=== PATIENT | male | born 1960 | race African-American/Black ===

== ENCOUNTER 2021-03-26 21:48 | Emergency (ER) | payer MEDICARE, MEDICAID ==
[~2021-03-26] VITALS: Ht 175.3 cm; Wt 68.0 kg
[2021-03-26] MEDS ORDERED: SODIUM CHLORIDE 0.9% 1,000 ML IV ONE (22:30)
[2021-03-26 23:14] LABS: CHLORIDE 100 mEq/L (98-107)
[2021-03-26 23:15] LABS: BASOPHILS % 0.5 % (0.0-2.0); EOSINOPHILS % 0.3 % (0.0-5.0); HEMOGLOBIN. 13.7 g/dL (14.0-18.0); LYMPHOCYTES % 18.6 % (20.0-50.0); MEAN CORPUSCULAR HEMOGLOBIN 27.3 pg (28.0-32.0); MEAN CORPUSCULAR VOLUME 85.7 fL (80.0-94.0); MONOCYTES % 9.8 % (2.0-8.0); NEUTROPHILS % 70.8 % (40.0-76.0); PLATELET 149 x1000/uL (130-400); RED BLOOD CELL COUNT 5.02 mill/uL (4.7-6.1); RED CELL DISTRIBUTION WIDTH 14.1 % (11.6-14.6)
[2021-03-26 23:19] LABS: ETHANOL BLOOD < 10 mg/dL
[2021-03-26 23:22] LABS: CLARITY URINE CLEAR (CLEAR); COLOR URINE YELLOW (YELLOW); KETONES URINE TRACE (NEGATIVE); LEUKOCYTE ESTERASE URINE NEGATIVE (NEGATIVE); NITRITE URINE NEGATIVE (NEGATIVE); OCCULT BLOOD URINE TRACE (NEGATIVE); PH URINE 5.5 (4.5-8.0); PROTEIN URINE 1+ (NEGATIVE); SPECIFIC GRAVITY URINE 1.025 (1.005-1.030); UROBILINOGEN URINE 0.2 E.U./dL (0.2-1.0)
[2021-03-26 23:31] LABS: *AMPHETAMINES SCREEN URINE NEGATIVE (NEGATIVE)
[2021-03-26 23:32] LABS: *BARBITURATES SCREEN URINE NEGATIVE (NEGATIVE); *BENZODIAZEPINES SCREEN URINE NEGATIVE (NEGATIVE); *COCAINE SCREEN URINE PRESUMTIVE POSITIVE (NEGATIVE); METHADONE URINE SCREEN NEGATIVE (NEGATIVE); OPIATES URINE SCREEN NEGATIVE (NEGATIVE); PHENCYCLIDINE URINE SCREEN NEGATIVE (NEGATIVE)
[2021-03-26 23:34] LABS: CANNABINOID URINE SCREEN PRESUMTIVE POSITIVE (NEGATIVE)
[2021-03-27 06:11] VITALS: BP 118/77
== END 2021-03-27 06:13 | disposition home or self-care (01) ==
LOC: ER 21:48
DX: F19.10 Other psychoactive substance abuse, uncomplicated (principal); F17.290 Nicotine dependence, other tobacco product, uncomplicated; F20.9 Schizophrenia, unspecified
CPT/HCPCS: 36415; 70450; 80053; 80165; 80305; 80320; 81003; 85025; 93005; 96360; 99285; J7030; G0480

== ENCOUNTER 2021-09-02 17:03 | Emergency (ER) | payer MEDICARE, MEDICAID ==
[~2021-09-02] VITALS: Ht 170.2 cm; Wt 71.0 kg
[2021-09-02 17:12] VITALS: BP 150/81
[2021-09-02] MEDS ORDERED: MAGNESIUM/ALUMINUM HYDROXIDE/SIMETHICONE 30ML UDC PO ONE (18:45)
[2021-09-02] MEDS ORDERED: FAMOTIDINE 20MG TABLET PO ONE (18:45)
[2021-09-02 20:03] LABS: BASOPHILS % 0.5 % (0.0-2.0); HEMATOCRIT. 43.1 % (42.0-52.0); LYMPHOCYTES % 29.9 % (20.0-50.0); MEAN CORPUSCULAR HEMOGLOBIN 27.4 pg (28.0-32.0); MEAN CORPUSCULAR VOLUME 84.2 fL (80.0-94.0); MEAN PLATELET VOLUME 8.4 fl (7.4-10.4); MONOCYTES % 10.2 % (2.0-8.0); NEUTROPHILS % 58.4 % (40.0-76.0); PLATELET 191 x1000/uL (130-400); RED BLOOD CELL COUNT 5.12 mill/uL (4.7-6.1); RED CELL DISTRIBUTION WIDTH 14.2 % (11.6-14.6)
[2021-09-02 20:17] LABS: CHLORIDE 100 mEq/L (98-107); ETHANOL BLOOD < 10 mg/dL
[2021-09-02] MEDS ORDERED: FAMO40TA70 MT (20:28)
[2021-09-02] MEDS ORDERED: POLY17PO3 MT (20:28)
== END 2021-09-02 21:16 | disposition home or self-care (01) ==
LOC: ER 17:03
DX: R10.9 Unspecified abdominal pain (principal); F17.290 Nicotine dependence, other tobacco product, uncomplicated
CPT/HCPCS: 36415; 80053; 80320; 85025; 99283; G0480

== ENCOUNTER 2023-06-03 13:40 | Inpatient (IN) | payer MEDICARE, MEDICAID ==
[~2023-06-03] VITALS: Ht 167.6 cm; Wt 41.5 kg
[~2023-06-03 13:40] MED LIST: DIVA-75 MT; FAMO40TA70 MT; MED4 MT; OLAN20TA34 PO; POLY17PO3 MT
[2023-06-03] MEDS: IPRATROPIUM BROMIDE (0.02%) 0.5MG/2.5ML NEB HHN STA (14:00)
[2023-06-03] MEDS: MAGNESIUM 2 G PREMIX 50 ML IV ONE (14:22)
[2023-06-03] MEDS: METHYLPREDNISOLONE SOD SUCC 125MG/2ML (ACT-O-VIAL) IV STA (14:22)
[2023-06-03 14:25] VITALS: RESP 24
[2023-06-03 14:25] LABS: BG BASE EXCESS 19.1 mmol/L (-2.0-2.0); BG CARBOXYHEMOGLOBIN 1.1 % (0.5-1.5); BG DEOXYHEMOGLOBIN 0.9 % (0.0-5.0); BG FRACTION INSPIRED OXYGEN 60; BG HCO3 ACT 54.2 mmol/L (22.0-26.0); BG METHEMOGLOBIN 0.7 % (0.0-1.5); BG OXYGEN SATURATION 99.1 % (92.0-98.5); BG OXYHEMOGLOBIN 97.3 % (94.0-97.0); BG PCO2 137.8 mmHg (35.0-45.0); BG PH 7.213 (7.350-7.450); BG PO2 199.4 mmHg (75.0-100.0); BG SAMPLE SITE RIGHT BRACHIAL; BG TOTAL HEMOGLOBIN 14.8 g/dL (12.0-18.0); BG VENT MODE MASK - HHN
[2023-06-03 14:44] LABS: HEMATOCRIT. 43.2 % (42.0-52.0); HEMOGLOBIN. 13.5 g/dL (14.0-18.0); MEAN CORPUSCULAR HEMOGLOBIN 28.8 pg (28.0-32.0); MEAN CORPUSCULAR HGB CONC 31.3 g/dL (31.0-37.0); MEAN CORPUSCULAR VOLUME 92.1 fL (80.0-94.0); MEAN PLATELET VOLUME 8.2 fl (7.4-10.4); PLATELET 152 x1000/uL (130-400); RED BLOOD CELL COUNT 4.69 mill/uL (4.7-6.1); RED CELL DISTRIBUTION WIDTH 15.4 % (11.6-14.6); WHITE BLOOD COUNT 6.7 x1000/uL (4.5-11.0)
[2023-06-03 14:46] LABS: DIFFERENTIAL COMMENT 1
[2023-06-03 14:56] LABS: ALANINE AMINOTRANSFERASE 115 IU/L (10-49); ASPARTATE AMINOTRANSFERASE 78 IU/L (<34); BILIRUBIN TOTAL 0.4 mg/dL (0.1-1.0); CALCIUM 8.9 mg/dL (8.7-10.4); CHLORIDE 90 mEq/L (98-107); CREATININE 0.5 mg/dL (0.6-1.3); GLUCOSE 189 mg/dL (70-105); PROTEIN TOTAL 6.7 g/dL (6.0-8.3); SODIUM 139 mEq/L (136-145); TROPONIN I HIGH SENSITIVITY 5 ng/L (3.0-53); UREA NITROGEN BLOOD 11 mg/dL (9-23)
[2023-06-03 14:59] LABS: CARBON DIOXIDE > 40 mEq/L (21-32)
[2023-06-03 15:11] LABS: PLATELET ESTIMATE NORMAL
[2023-06-03 16:42] LABS: TROPONIN I HIGH SENSITIVITY 7 ng/L (3.0-53)
[2023-06-03 17:53] VITALS: RESP 24
[2023-06-03 22:09] LABS: TROPONIN I HIGH SENSITIVITY 6 ng/L (3.0-53)
[2023-06-03 23:00] VITALS: BP 104/71; PULSE 97; RESP 19; TEMP 98.6
[2023-06-04] VITALS (33 sets, daily range): BP systolic 100–150; BP diastolic 71–112; PULSE 88–123; RESP 14–29; TEMP 97.6–98.6; O2SAT 93–100
[2023-06-04] MEDS ORDERED: NALOXONE HCL 0.4MG/ML VIAL IV PRN (00:45)
[2023-06-04] MEDS: LEVOFLOXACIN 500MG PREMIX 100 ML IV SCH (03:43)
[2023-06-04] MEDS: IPRATROPIUM/ALBUTEROL 0.5-3(2.5)MG/3ML NEB HHN SCH (03:57)
[2023-06-04] MEDS: METHYLPREDNISOLONE SOD SUCC 40MG/ML (ACT-O-VIAL) IV SCH (06:00)
[2023-06-04] MEDS: ENOXAPARIN 30MG/0.3ML SYR SUBCUT SCH (09:00)
[2023-06-04 11:14] LABS: BG BASE EXCESS 25.6 mmol/L (-2.0-2.0); BG CARBOXYHEMOGLOBIN 0.9 % (0.5-1.5); BG DEOXYHEMOGLOBIN 3.7 % (0.0-5.0); BG FRACTION INSPIRED OXYGEN 100; BG HCO3 ACT 62.9 mmol/L (22.0-26.0); BG METHEMOGLOBIN 0.4 % (0.0-1.5); BG OXYGEN SATURATION 96.3 % (92.0-98.5); BG PCO2 169.5 mmHg (35.0-45.0); BG PH 7.187 (7.350-7.450); BG SAMPLE SITE RIGHT RADIAL; BG TOTAL HEMOGLOBIN 14.3 g/dL (12.0-18.0); BG VENT MODE MASK - NRB
[2023-06-04 13:24] LABS: HEMATOCRIT. 41.6 % (42.0-52.0); MEAN CORPUSCULAR HEMOGLOBIN 29.1 pg (28.0-32.0); MEAN CORPUSCULAR HGB CONC 31.2 g/dL (31.0-37.0); MEAN CORPUSCULAR VOLUME 93.4 fL (80.0-94.0); MEAN PLATELET VOLUME 7.9 fl (7.4-10.4); PLATELET 143 x1000/uL (130-400); RED BLOOD CELL COUNT 4.45 mill/uL (4.7-6.1); RED CELL DISTRIBUTION WIDTH 15.6 % (11.6-14.6); WHITE BLOOD COUNT 5.9 x1000/uL (4.5-11.0)
[2023-06-04 13:42] LABS: ALANINE AMINOTRANSFERASE 87 IU/L (10-49); ALBUMIN 3.8 g/dL (3.2-4.8); ASPARTATE AMINOTRANSFERASE 40 IU/L (<34); BILIRUBIN TOTAL 0.3 mg/dL (0.1-1.0); CALCIUM 8.8 mg/dL (8.7-10.4); CHLORIDE 91 mEq/L (98-107); CREATININE 0.4 mg/dL (0.6-1.3); GLUCOSE 120 mg/dL (70-105); POTASSIUM 4.4 mEq/L (3.5-5.1); PROTEIN TOTAL 6.4 g/dL (6.0-8.3); SODIUM 140 mEq/L (136-145); UREA NITROGEN BLOOD 9 mg/dL (9-23)
[2023-06-04 13:44] LABS: DIFFERENTIAL COMMENT 1
[2023-06-04 14:12] LABS: CARBON DIOXIDE > 40 mEq/L (21-32)
[2023-06-04 14:12] LABS: BG BASE EXCESS 22.7 mmol/L (-2.0-2.0); BG CARBOXYHEMOGLOBIN 0.2 % (0.5-1.5); BG DEOXYHEMOGLOBIN 6.4 % (0.0-5.0); BG FRACTION INSPIRED OXYGEN 40; BG HCO3 ACT 56.2 mmol/L (22.0-26.0); BG METHEMOGLOBIN 0.1 % (0.0-1.5); BG OXYGEN SATURATION 93.6 % (92.0-98.5); BG OXYHEMOGLOBIN 93.3 % (94.0-97.0); BG PCO2 121.3 mmHg (35.0-45.0); BG PH 7.284 (7.350-7.450); BG PO2 70.1 mmHg (75.0-100.0); BG SAMPLE SITE RIGHT RADIAL; BG TOTAL RESPIRATORY RATE 27 b/min; BG VENT MODE MASK - BIPAP
[2023-06-04 14:41] LABS: PLATELET ESTIMATE NORMAL
[2023-06-04] MEDS: HYDROCODONE/ACETAMINOPHEN 5/325MG TABLET PO PRN (14:56)
[2023-06-04] MEDS: OLANZAPINE 10MG TABLET PO SCH (21:20)
[2023-06-04] MEDS: DIVALPROEX SODIUM 500MG ER TABLET PO SCH (21:21)
[2023-06-05] VITALS (20 sets, daily range): BP systolic 90–151; BP diastolic 64–89; PULSE 101–139; RESP 17–29; TEMP 97.1–98.6
[2023-06-05 06:19] LABS: CALCIUM 9.2 mg/dL (8.7-10.4); CHLORIDE 90 mEq/L (98-107); CREATININE 0.5 mg/dL (0.6-1.3); GLUCOSE 117 mg/dL (70-105); POTASSIUM 5.2 mEq/L (3.5-5.1); SODIUM 139 mEq/L (136-145); UREA NITROGEN BLOOD 10 mg/dL (9-23)
[2023-06-05 06:27] LABS: CARBON DIOXIDE > 40 mEq/L (21-32)
[2023-06-05 06:39] LABS: BASOPHILS % 0.1 % (0.0-2.0); DIFFERENTIAL COMMENT 0; HEMATOCRIT. 42.3 % (42.0-52.0); LYMPHOCYTES % 8.1 % (20.0-50.0); MEAN CORPUSCULAR HEMOGLOBIN 28.5 pg (28.0-32.0); MEAN CORPUSCULAR HGB CONC 30.8 g/dL (31.0-37.0); MEAN CORPUSCULAR VOLUME 92.7 fL (80.0-94.0); MEAN PLATELET VOLUME 8.7 fl (7.4-10.4); MONOCYTES % 7.4 % (2.0-8.0); NEUTROPHILS % 84.4 % (40.0-76.0); PLATELET 130 x1000/uL (130-400); RED BLOOD CELL COUNT 4.56 mill/uL (4.7-6.1); RED CELL DISTRIBUTION WIDTH 15.1 % (11.6-14.6); WHITE BLOOD COUNT 3.9 x1000/uL (4.5-11.0)
[2023-06-05 09:13] LABS: BG BASE EXCESS 18.9 mmol/L (-2.0-2.0); BG CARBOXYHEMOGLOBIN 1.2 % (0.5-1.5); BG DEOXYHEMOGLOBIN 0.6 % (0.0-5.0); BG FRACTION INSPIRED OXYGEN 100; BG METHEMOGLOBIN 0.4 % (0.0-1.5); BG OXYGEN SATURATION 99.4 % (92.0-98.5); BG OXYHEMOGLOBIN 97.8 % (94.0-97.0); BG PCO2 116.4 mmHg (35.0-45.0); BG PH 7.268 (7.350-7.450); BG PO2 185.6 mmHg (75.0-100.0); BG SAMPLE SITE RIGHT RADIAL; BG TOTAL HEMOGLOBIN 14.1 g/dL (12.0-18.0); BG VENT MODE MASK - NRB
[2023-06-05] MEDS: BUDESONIDE 0.5MG/2ML NEB HHN SCH (21:09)
[2023-06-06] VITALS (16 sets, daily range): BP systolic 97–166; BP diastolic 75–91; PULSE 85–126; RESP 15–32; TEMP 97.4–98; O2SAT 100
[2023-06-06 06:13] LABS: HEMATOCRIT. 40.7 % (42.0-52.0); HEMOGLOBIN. 12.4 g/dL (14.0-18.0); MEAN CORPUSCULAR HEMOGLOBIN 28.5 pg (28.0-32.0); MEAN CORPUSCULAR HGB CONC 30.5 g/dL (31.0-37.0); MEAN CORPUSCULAR VOLUME 93.6 fL (80.0-94.0); MEAN PLATELET VOLUME 8.2 fl (7.4-10.4); PLATELET 149 x1000/uL (130-400); RED BLOOD CELL COUNT 4.35 mill/uL (4.7-6.1); WHITE BLOOD COUNT 5.2 x1000/uL (4.5-11.0)
[2023-06-06 06:18] LABS: CALCIUM 9.1 mg/dL (8.7-10.4); CHLORIDE 92 mEq/L (98-107); CREATININE 0.5 mg/dL (0.6-1.3); GLUCOSE 117 mg/dL (70-105); POTASSIUM 5.2 mEq/L (3.5-5.1); SODIUM 143 mEq/L (136-145); UREA NITROGEN BLOOD 17 mg/dL (9-23)
[2023-06-06 06:26] LABS: DIFFERENTIAL COMMENT 1
[2023-06-06 06:40] LABS: CARBON DIOXIDE > 40 mEq/L (21-32)
[2023-06-06 08:44] LABS: BG CARBOXYHEMOGLOBIN 0.4 % (0.5-1.5); BG DEOXYHEMOGLOBIN 1.3 % (0.0-5.0); BG FRACTION INSPIRED OXYGEN 40; BG METHEMOGLOBIN 0.3 % (0.0-1.5); BG OXYGEN SATURATION 98.7 % (92.0-98.5); BG PCO2 133.8 mmHg (35.0-45.0); BG PH 7.277 (7.350-7.450); BG PO2 147.7 mmHg (75.0-100.0); BG SAMPLE SITE RIGHT RADIAL; BG TOTAL RESPIRATORY RATE 31 b/min; BG VENT MODE MASK - BIPAP
[2023-06-06] MEDS ORDERED: LORAZEPAM 2MG/ML INJ IV NR (09:00)
[2023-06-06] MEDS: METHYLPREDNISOLONE SOD SUCC 125MG/2ML (ACT-O-VIAL) IV SCH (10:59)
[2023-06-06] MEDS: DILTIAZEM HCL 30MG TABLET PO SCH (11:01)
[2023-06-06 15:19] LABS: GIANT PLATELETS 1+; PLATELET ESTIMATE NORMAL
[2023-06-06] MEDS: ACETAMINOPHEN 325MG TABLET PO PRN (22:04)
[2023-06-07] VITALS (17 sets, daily range): BP systolic 115–174; BP diastolic 64–106; PULSE 85–128; RESP 16–29; TEMP 97–99.8; O2SAT 92
[2023-06-07] MEDS: HALOPERIDOL LACTATE 5MG/ML VIAL IM PRN (03:00)
[2023-06-07 10:21] LABS: BG BASE EXCESS 27.7 mmol/L (-2.0-2.0); BG CARBOXYHEMOGLOBIN 0.8 % (0.5-1.5); BG DEOXYHEMOGLOBIN 0.4 % (0.0-5.0); BG FRACTION INSPIRED OXYGEN 60; BG HCO3 ACT 61.8 mmol/L (22.0-26.0); BG METHEMOGLOBIN 0.3 % (0.0-1.5); BG OXYGEN SATURATION 99.6 % (92.0-98.5); BG OXYHEMOGLOBIN 98.5 % (94.0-97.0); BG PCO2 132.4 mmHg (35.0-45.0); BG PH 7.287 (7.350-7.450); BG PO2 243.1 mmHg (75.0-100.0); BG SAMPLE SITE RIGHT RADIAL; BG TOTAL HEMOGLOBIN 13.3 g/dL (12.0-18.0); BG VENT MODE NASAL CANNULA
[2023-06-07] MEDS ORDERED: OLANZAPINE 10MG TABLET PO SCH (15:30)
[2023-06-07] MEDS: DIVALPROEX SODIUM 500MG ER TABLET PO SCH (21:52)
[2023-06-08] VITALS (14 sets, daily range): BP systolic 109–180; BP diastolic 68–127; PULSE 91–142; RESP 18–37; TEMP 97.5–98.5; O2SAT 96
[2023-06-08 10:55] LABS: BG BASE EXCESS 31.6 mmol/L (-2.0-2.0); BG CARBOXYHEMOGLOBIN 1.2 % (0.5-1.5); BG DEOXYHEMOGLOBIN 22.5 % (0.0-5.0); BG FRACTION INSPIRED OXYGEN 45; BG HCO3 ACT 67.6 mmol/L (22.0-26.0); BG METHEMOGLOBIN 0.4 % (0.0-1.5); BG OXYGEN SATURATION 77.1 % (92.0-98.5); BG OXYHEMOGLOBIN 75.9 % (94.0-97.0); BG PCO2 147.6 mmHg (35.0-45.0); BG PH 7.279 (7.350-7.450); BG PO2 47.7 mmHg (75.0-100.0); BG SAMPLE SITE RIGHT BRACHIAL; BG TOTAL HEMOGLOBIN 14.2 g/dL (12.0-18.0); BG VENT MODE HIGH FLOW
[2023-06-08 15:50] LABS: INR 1.1; PROTHROMBIN TIME 11.8 sec (9.6-11.0)
[2023-06-08] MEDS ORDERED: ENOXAPARIN 40MG/0.4ML SYR SUBCUT SCH (21:00)
[2023-06-08] MEDS: ENOXAPARIN 40MG/0.4ML SYR SUBCUT SCH (21:53)
[2023-06-08] MEDS ORDERED: IOHEXOL-350 100 ML BOTTLE ONE (23:35)
[2023-06-09] VITALS (19 sets, daily range): BP systolic 82–148; BP diastolic 57–94; PULSE 87–129; RESP 17–31; TEMP 97–99; O2SAT 97
[2023-06-09 10:32] LABS: BG BASE EXCESS 25.8 mmol/L (-2.0-2.0); BG CARBOXYHEMOGLOBIN 1.2 % (0.5-1.5); BG DEOXYHEMOGLOBIN 25.6 % (0.0-5.0); BG FRACTION INSPIRED OXYGEN 40; BG METHEMOGLOBIN 0.3 % (0.0-1.5); BG OXYHEMOGLOBIN 72.9 % (94.0-97.0); BG PCO2 105.7 mmHg (35.0-45.0); BG PH 7.357 (7.350-7.450); BG PO2 43.1 mmHg (75.0-100.0); BG SAMPLE SITE RIGHT BRACHIAL; BG TOTAL HEMOGLOBIN 13.8 g/dL (12.0-18.0); BG VENT MODE HIGH FLOW
[2023-06-10] VITALS (15 sets, daily range): BP systolic 108–170; BP diastolic 71–105; PULSE 86–126; RESP 19–28; TEMP 97.5–99.1
[2023-06-10] MEDS: ENOXAPARIN 40MG/0.4ML SYR SUBCUT SCH (08:56)
[2023-06-10] MEDS: HALOPERIDOL LACTATE 5MG/ML VIAL IM PRN (15:03)
[2023-06-10] MEDS: METHYLPREDNISOLONE SOD SUCC 40MG/ML (ACT-O-VIAL) IV SCH (17:22)
[2023-06-11] VITALS (14 sets, daily range): BP systolic 105–188; BP diastolic 60–101; PULSE 83–126; RESP 17–30; TEMP 97.3–98.2
[2023-06-11] MEDS: ENOXAPARIN 30MG/0.3ML SYR SUBCUT SCH (09:01)
[2023-06-11 11:11] LABS: BG BASE EXCESS 32.3 mmol/L (-2.0-2.0); BG CARBOXYHEMOGLOBIN 1.4 % (0.5-1.5); BG DEOXYHEMOGLOBIN 24.7 % (0.0-5.0); BG FRACTION INSPIRED OXYGEN 40; BG HCO3 ACT 67.3 mmol/L (22.0-26.0); BG METHEMOGLOBIN 0.3 % (0.0-1.5); BG OXYGEN SATURATION 74.9 % (92.0-98.5); BG OXYHEMOGLOBIN 73.6 % (94.0-97.0); BG PCO2 133.3 mmHg (35.0-45.0); BG PH 7.321 (7.350-7.450); BG PO2 45.3 mmHg (75.0-100.0); BG SAMPLE SITE RIGHT BRACHIAL; BG TOTAL HEMOGLOBIN 14.2 g/dL (12.0-18.0); BG VENT MODE HIGH FLOW
[2023-06-11 12:38] LABS: HEMATOCRIT. 42.8 % (42.0-52.0); MEAN CORPUSCULAR HEMOGLOBIN 28.7 pg (28.0-32.0); MEAN CORPUSCULAR HGB CONC 30.4 g/dL (31.0-37.0); MEAN CORPUSCULAR VOLUME 94.2 fL (80.0-94.0); PLATELET 168 x1000/uL (130-400); RED BLOOD CELL COUNT 4.54 mill/uL (4.7-6.1); RED CELL DISTRIBUTION WIDTH 15.7 % (11.6-14.6); WHITE BLOOD COUNT 9.5 x1000/uL (4.5-11.0)
[2023-06-11 12:47] LABS: DIFFERENTIAL COMMENT 1
[2023-06-11] MEDS ORDERED: IOHEXOL-350 100 ML BOTTLE ONE (12:51)
[2023-06-11 13:05] LABS: ALANINE AMINOTRANSFERASE 48 IU/L (10-49); ALBUMIN 4.1 g/dL (3.2-4.8); ASPARTATE AMINOTRANSFERASE 27 IU/L (<34); BILIRUBIN TOTAL 0.5 mg/dL (0.1-1.0); CALCIUM 9.3 mg/dL (8.7-10.4); CHLORIDE 86 mEq/L (98-107); CREATININE 0.6 mg/dL (0.6-1.3); POTASSIUM 4.7 mEq/L (3.5-5.1); PROTEIN TOTAL 6.4 g/dL (6.0-8.3); SODIUM 143 mEq/L (136-145); UREA NITROGEN BLOOD 23 mg/dL (9-23)
[2023-06-11 13:14] LABS: GLUCOSE 365 mg/dL (70-105)
[2023-06-11 13:15] LABS: CARBON DIOXIDE > 40 mEq/L (21-32)
[2023-06-11 13:29] LABS: ANISOCYTOSIS 1+; PLATELET ESTIMATE NORMAL
[2023-06-12] VITALS (16 sets, daily range): BP systolic 109–165; BP diastolic 61–118; PULSE 80–130; RESP 15–28; TEMP 97.3–98.8; O2SAT 90
[2023-06-12] MEDS: IPRATROPIUM/ALBUTEROL 0.5-3(2.5)MG/3ML NEB HHN PRN (09:24)
[2023-06-13] VITALS (74 sets, daily range): BP systolic 57–192; BP diastolic 24–138; PULSE 31–217; RESP 15–50; TEMP 97.5–99.6
[2023-06-13] MEDS: KETAMINE HCL 50 MG/ML 10ML IV NR ×2 (18:05→18:52)
[2023-06-13] MEDS: NOREPINEPHRINE 8MG/250ML PMX 250 ML IV PRN (18:10)
[2023-06-13] MEDS: PROPOFOL 10MG/ML 100ML 100 ML IV PRN (18:11)
[2023-06-13] MEDS: PHENYLEPHRINE 50MG/250ML PMX 250 ML IV PRN (18:53)
[2023-06-13 20:30] LABS: BG BASE EXCESS 26.9 mmol/L (-2.0-2.0); BG CARBOXYHEMOGLOBIN 0.8 % (0.5-1.5); BG DEOXYHEMOGLOBIN 0.3 % (0.0-5.0); BG FRACTION INSPIRED OXYGEN 100; BG HCO3 ACT 51.3 mmol/L (22.0-26.0); BG METHEMOGLOBIN 0.3 % (0.0-1.5); BG OXYGEN SATURATION 99.7 % (92.0-98.5); BG OXYHEMOGLOBIN 98.6 % (94.0-97.0); BG PCO2 47.5 mmHg (35.0-45.0); BG PEEP (cmH2O) 0 cmH2O; BG PH 7.651 (7.350-7.450); BG PO2 372.1 mmHg (75.0-100.0); BG SAMPLE SITE LEFT RADIAL; BG TOTAL HEMOGLOBIN 13.7 g/dL (12.0-18.0); BG VENT MODE VENT - APRV
[2023-06-13] MEDS: EPINEPHRINE 5 MG in SODIUM CHLORIDE 0.9% 245 ML IV PRN (20:59)
[2023-06-13] MEDS ORDERED: DEXTROSE 50% WATER 50ML SYRINGE IV PRN (21:00)
[2023-06-13] MEDS: INSULIN LISPRO 100 UNITS/ML SUBCUT SCH (21:00)
[2023-06-13] MEDS: BLOOD SUGAR DIAGNOSTIC STRIP TEST SCH (21:00)
[2023-06-13 21:37] LABS: HEMATOCRIT. 42.3 % (42.0-52.0); HEMOGLOBIN. 12.3 g/dL (14.0-18.0); MEAN CORPUSCULAR HEMOGLOBIN 27.6 pg (28.0-32.0); MEAN CORPUSCULAR HGB CONC 29.1 g/dL (31.0-37.0); MEAN CORPUSCULAR VOLUME 94.8 fL (80.0-94.0); MEAN PLATELET VOLUME 10.4 fl (7.4-10.4); PLATELET 133 x1000/uL (130-400); RED BLOOD CELL COUNT 4.47 mill/uL (4.7-6.1); WHITE BLOOD COUNT 18.5 x1000/uL (4.5-11.0)
[2023-06-13 21:38] LABS: DIFFERENTIAL COMMENT 1
[2023-06-13 21:50] LABS: CALCIUM 8.7 mg/dL (8.7-10.4); CHLORIDE 91 mEq/L (98-107); CREATININE 0.7 mg/dL (0.6-1.3); GLUCOSE 349 mg/dL (70-105); POTASSIUM 4.7 mEq/L (3.5-5.1); SODIUM 147 mEq/L (136-145); UREA NITROGEN BLOOD 29 mg/dL (9-23)
[2023-06-13 21:54] LABS: CARBON DIOXIDE > 40 mEq/L (21-32)
[2023-06-13 21:56] LABS: TROPONIN I HIGH SENSITIVITY 729 ng/L (3.0-53)
[2023-06-13] MEDS: SODIUM CHLORIDE 0.9% 1,000 ML IV NR (21:56)
[2023-06-13] MEDS: SODIUM CHLORIDE 0.9% 1,000 ML IV SCH (21:57)
[2023-06-13] MEDS: PIPERACILLIN/TAZO 3.375G/50ML 50 ML IV SCH (22:00)
[2023-06-13 22:40] LABS: ANISOCYTOSIS 1+; PLATELET ESTIMATE NORMAL
[2023-06-13 22:42] LABS: STOMATOCYTES 1+
[2023-06-13 23:02] LABS: BG BASE EXCESS 22.6 mmol/L (-2.0-2.0); BG CARBOXYHEMOGLOBIN 0.5 % (0.5-1.5); BG DEOXYHEMOGLOBIN 5.8 % (0.0-5.0); BG FRACTION INSPIRED OXYGEN 40; BG HCO3 ACT 48.8 mmol/L (22.0-26.0); BG METHEMOGLOBIN 0.1 % (0.0-1.5); BG OXYGEN SATURATION 94.2 % (92.0-98.5); BG OXYHEMOGLOBIN 93.6 % (94.0-97.0); BG PCO2 59.9 mmHg (35.0-45.0); BG PH 7.529 (7.350-7.450); BG PO2 63.4 mmHg (75.0-100.0); BG SAMPLE SITE RIGHT RADIAL; BG TOTAL HEMOGLOBIN 12.2 g/dL (12.0-18.0); BG TOTAL RESPIRATORY RATE 18 b/min; BG VENT MODE COOL AEROSOL
[2023-06-13] MEDS: DIVALPROEX SODIUM 125MG SPRINKLE CAPSULE PO SCH (23:20)
[2023-06-13] MEDS: DIGOXIN 500MCG/2ML AMP IV NR (23:48)
[2023-06-13] MEDS: VASOPRESSIN 20 UNIT in SODIUM CHLORIDE 0.9% 99 ML IV PRN (23:51)
[2023-06-14] VITALS (198 sets, daily range): BP systolic 37–231; BP diastolic 25–185; PULSE 84–152; RESP 0–42; TEMP 98.5–99.5
[2023-06-14] MEDS: LORAZEPAM 2MG/ML INJ IV PRN (00:27)
[2023-06-14] MEDS: LEVETIRACETAM 500MG PREMIX 100 ML IV NR (01:53)
[2023-06-14] MEDS: DOBUTAMINE IV PRN (04:45)
[2023-06-14] MEDS: BLOOD SUGAR DIAGNOSTIC STRIP TEST SCH (11:15)
[2023-06-14] MEDS: LORAZEPAM 2MG/ML INJ IV NR (11:21)
[2023-06-14] MEDS: INSULIN LISPRO 100 UNITS/ML SUBCUT SCH (11:22)
[2023-06-14] MEDS: LEVETIRACETAM 1,000 MG in SODIUM CHLORIDE 0.9% 100 ML IV SCH (14:10)
[2023-06-14 18:52] LABS: BG BASE EXCESS 21.4 mmol/L (-2.0-2.0); BG CARBOXYHEMOGLOBIN 0.3 % (0.5-1.5); BG DEOXYHEMOGLOBIN 0.6 % (0.0-5.0); BG FRACTION INSPIRED OXYGEN 100; BG HCO3 ACT 46.8 mmol/L (22.0-26.0); BG METHEMOGLOBIN 0.4 % (0.0-1.5); BG OXYGEN SATURATION 99.4 % (92.0-98.5); BG OXYHEMOGLOBIN 98.7 % (94.0-97.0); BG PCO2 55.4 mmHg (35.0-45.0); BG PH 7.545 (7.350-7.450); BG PO2 407.1 mmHg (75.0-100.0); BG SAMPLE SITE ALINE; BG TOTAL HEMOGLOBIN 11.9 g/dL (12.0-18.0); BG VENT MODE VENT - APRV
[2023-06-14 21:53] LABS: TROPONIN I HIGH SENSITIVITY 3922 ng/L (3.0-53)
[2023-06-14] MEDS: PROPOFOL 10MG/ML 100ML 100 ML IV PRN (23:37)
[2023-06-15] VITALS (98 sets, daily range): BP systolic 85–159; BP diastolic 65–101; PULSE 58–111; RESP 13–26; TEMP 97.8–99
[2023-06-15] MEDS: IPRATROPIUM/ALBUTEROL 0.5-3(2.5)MG/3ML NEB HHN SCH (00:21)
[2023-06-15 03:17] LABS: CALCIUM 7.7 mg/dL (8.7-10.4); CHLORIDE 101 mEq/L (98-107); CREATININE 0.5 mg/dL (0.6-1.3); POTASSIUM 2.9 mEq/L (3.5-5.1); SODIUM 151 mEq/L (136-145); UREA NITROGEN BLOOD 27 mg/dL (9-23)
[2023-06-15 03:34] LABS: CARBON DIOXIDE > 40 mEq/L (21-32); GLUCOSE 170 mg/dL (70-105)
[2023-06-15 03:50] LABS: HEMATOCRIT. 35.7 % (42.0-52.0); MEAN CORPUSCULAR HGB CONC 30.9 g/dL (31.0-37.0); MEAN CORPUSCULAR VOLUME 90.8 fL (80.0-94.0); MEAN PLATELET VOLUME 10.6 fl (7.4-10.4); PLATELET 71 x1000/uL (130-400); RED BLOOD CELL COUNT 3.94 mill/uL (4.7-6.1); RED CELL DISTRIBUTION WIDTH 15.7 % (11.6-14.6); WHITE BLOOD COUNT 13.4 x1000/uL (4.5-11.0)
[2023-06-15 03:57] LABS: DIFFERENTIAL COMMENT 1
[2023-06-15 04:00] LABS: ALANINE AMINOTRANSFERASE 80 IU/L (10-49); ALBUMIN 3.1 g/dL (3.2-4.8); ASPARTATE AMINOTRANSFERASE 54 IU/L (<34); BILIRUBIN TOTAL 0.8 mg/dL (0.1-1.0); CALCIUM 7.8 mg/dL (8.7-10.4); CHLORIDE 102 mEq/L (98-107); CREATININE 0.5 mg/dL (0.6-1.3); GLUCOSE 78 mg/dL (70-105); PHOSPHORUS 1.7 mg/dL (2.5-4.9); PROTEIN TOTAL 4.5 g/dL (6.0-8.3); SODIUM 151 mEq/L (136-145); UREA NITROGEN BLOOD 21 mg/dL (9-23)
[2023-06-15 04:22] LABS: CARBON DIOXIDE > 40 mEq/L (21-32)
[2023-06-15 04:23] LABS: POTASSIUM 2.7 mEq/L (3.5-5.1)
[2023-06-15] MEDS: ENOXAPARIN 40MG/0.4ML SYR SUBCUT SCH (08:15)
[2023-06-15] MEDS: POTASSIUM CHLORIDE IV SCH (08:42)
[2023-06-15] MEDS: WATER IV SCH (08:42)
[2023-06-15] MEDS: DEXT 5% IV SCH (08:42)
[2023-06-15] MEDS: MAGNESIUM 4 G PREMIX 100 ML IV SCH (08:43)
[2023-06-15] MEDS ORDERED: ACETAMINOPHEN 325MG TABLET PO PRN (09:30)
[2023-06-15 09:35] LABS: BG BASE EXCESS 16.4 mmol/L (-2.0-2.0); BG CARBOXYHEMOGLOBIN 0.3 % (0.5-1.5); BG DEOXYHEMOGLOBIN 3.8 % (0.0-5.0); BG FRACTION INSPIRED OXYGEN 40; BG HCO3 ACT 41.6 mmol/L (22.0-26.0); BG METHEMOGLOBIN 0.3 % (0.0-1.5); BG OXYGEN SATURATION 96.2 % (92.0-98.5); BG OXYHEMOGLOBIN 95.6 % (94.0-97.0); BG PCO2 52.9 mmHg (35.0-45.0); BG PH 7.514 (7.350-7.450); BG PO2 80.7 mmHg (75.0-100.0); BG SAMPLE SITE ALINE; BG TOTAL HEMOGLOBIN 11.5 g/dL (12.0-18.0); BG TOTAL RESPIRATORY RATE 16 b/min; BG VENT MODE APRVC
[2023-06-15 12:50] LABS: PLATELET ESTIMATE DECREASED
[2023-06-15 13:58] LABS: TROPONIN I HIGH SENSITIVITY 3062 ng/L (3.0-53)
[2023-06-16] VITALS (105 sets, daily range): BP systolic 89–139; BP diastolic 52–85; PULSE 49–93; RESP 16–25; TEMP 97.6–98.9
[2023-06-16] MEDS: PROPOFOL 10MG/ML 100ML 100 ML IV PRN ×2 (00:33→14:59)
[2023-06-16] MEDS: DEXT 5%/0.45% NACL KCL 20MEQ/L 1,000 ML IV SCH (01:06)
[2023-06-16 07:13] LABS: HEMATOCRIT. 28.5 % (42.0-52.0); MEAN CORPUSCULAR HEMOGLOBIN 28.5 pg (28.0-32.0); MEAN CORPUSCULAR HGB CONC 31.7 g/dL (31.0-37.0); MEAN CORPUSCULAR VOLUME 89.9 fL (80.0-94.0); MEAN PLATELET VOLUME 10.3 fl (7.4-10.4); PLATELET 53 x1000/uL (130-400); RED BLOOD CELL COUNT 3.17 mill/uL (4.7-6.1); WHITE BLOOD COUNT 9.4 x1000/uL (4.5-11.0)
[2023-06-16 07:20] LABS: DIFFERENTIAL COMMENT 1
[2023-06-16 07:40] LABS: CALCIUM 7.4 mg/dL (8.7-10.4); CARBON DIOXIDE 38 mEq/L (21-32); CHLORIDE 105 mEq/L (98-107); CREATININE 0.4 mg/dL (0.6-1.3); PHOSPHORUS 2.3 mg/dL (2.5-4.9); POTASSIUM 3.1 mEq/L (3.5-5.1); SODIUM 147 mEq/L (136-145); TRIGLYCERIDE 224 mg/dL (0-150); UREA NITROGEN BLOOD 22 mg/dL (9-23)
[2023-06-16 07:41] LABS: GLUCOSE 259 mg/dL (70-105)
[2023-06-16] MEDS: ENOXAPARIN 30MG/0.3ML SYR SUBCUT SCH (07:54)
[2023-06-16 08:57] LABS: BG BASE EXCESS 13.2 mmol/L (-2.0-2.0); BG CARBOXYHEMOGLOBIN 0.3 % (0.5-1.5); BG DEOXYHEMOGLOBIN 2.1 % (0.0-5.0); BG FRACTION INSPIRED OXYGEN 40; BG HCO3 ACT 37.2 mmol/L (22.0-26.0); BG METHEMOGLOBIN 0.4 % (0.0-1.5); BG OXYGEN SATURATION 97.9 % (92.0-98.5); BG OXYHEMOGLOBIN 97.2 % (94.0-97.0); BG PEEP (cmH2O) 0 cmH2O; BG PH 7.535 (7.350-7.450); BG PO2 128.8 mmHg (75.0-100.0); BG SAMPLE SITE ALINE; BG TOTAL HEMOGLOBIN 9.1 g/dL (12.0-18.0); BG VENT MODE VENT - PRVC
[2023-06-16] MEDS ORDERED: LIDOCAINE HCL 1% 10 MG/ML 10ML VIAL ONE (09:52)
[2023-06-16 10:04] LABS: ANISOCYTOSIS 1+; PLATELET ESTIMATE DECREASED
[2023-06-16] MEDS: POTASSIUM CHLORIDE 40 MEQ in DEXT 5% WATER 250 ML IV NR (13:12)
[2023-06-17] VITALS (100 sets, daily range): BP systolic 110–154; BP diastolic 55–100; PULSE 52–112; RESP 11–21; TEMP 98.2–98.9
[2023-06-17 05:45] LABS: BASOPHILS % 1.4 % (0.0-2.0); HEMATOCRIT. 26.7 % (42.0-52.0); HEMOGLOBIN. 8.5 g/dL (14.0-18.0); LYMPHOCYTES % 9.8 % (20.0-50.0); MEAN CORPUSCULAR HEMOGLOBIN 28.7 pg (28.0-32.0); MEAN CORPUSCULAR HGB CONC 31.8 g/dL (31.0-37.0); MEAN CORPUSCULAR VOLUME 90.2 fL (80.0-94.0); MEAN PLATELET VOLUME 10.1 fl (7.4-10.4); MONOCYTES % 6.9 % (2.0-8.0); NEUTROPHILS % 81.9 % (40.0-76.0); PLATELET 53 x1000/uL (130-400); RED BLOOD CELL COUNT 2.96 mill/uL (4.7-6.1); RED CELL DISTRIBUTION WIDTH 15.1 % (11.6-14.6); WHITE BLOOD COUNT 9.6 x1000/uL (4.5-11.0)
[2023-06-17 05:58] LABS: CALCIUM 7.6 mg/dL (8.7-10.4); CARBON DIOXIDE 33 mEq/L (21-32); CHLORIDE 106 mEq/L (98-107); CREATININE 0.5 mg/dL (0.6-1.3); GLUCOSE 232 mg/dL (70-105); PHOSPHORUS 1.8 mg/dL (2.5-4.9); POTASSIUM 3.7 mEq/L (3.5-5.1); SODIUM 144 mEq/L (136-145); TRIGLYCERIDE 112 mg/dL (0-150); UREA NITROGEN BLOOD 21 mg/dL (9-23)
[2023-06-17 09:18] LABS: BG BASE EXCESS 8.4 mmol/L (-2.0-2.0); BG CARBOXYHEMOGLOBIN 0.3 % (0.5-1.5); BG DEOXYHEMOGLOBIN 1.8 % (0.0-5.0); BG FRACTION INSPIRED OXYGEN 40; BG HCO3 ACT 32.8 mmol/L (22.0-26.0); BG METHEMOGLOBIN 0.4 % (0.0-1.5); BG OXYGEN SATURATION 98.2 % (92.0-98.5); BG OXYHEMOGLOBIN 97.5 % (94.0-97.0); BG PEEP (cmH2O) 0 cmH2O; BG SAMPLE SITE ALINE; BG TOTAL HEMOGLOBIN 9.8 g/dL (12.0-18.0); BG VENT MODE VENT - PRVC
[2023-06-18] VITALS (79 sets, daily range): BP systolic 105–166; BP diastolic 57–101; PULSE 80–120; RESP 0–25; TEMP 97.8–98.5
[2023-06-18 07:04] LABS: HEMATOCRIT. 32.7 % (42.0-52.0); HEMOGLOBIN. 10.2 g/dL (14.0-18.0); MEAN CORPUSCULAR HEMOGLOBIN 28.4 pg (28.0-32.0); MEAN CORPUSCULAR HGB CONC 31.2 g/dL (31.0-37.0); MEAN CORPUSCULAR VOLUME 90.9 fL (80.0-94.0); MEAN PLATELET VOLUME 10.8 fl (7.4-10.4); PLATELET 91 x1000/uL (130-400); RED BLOOD CELL COUNT 3.59 mill/uL (4.7-6.1); RED CELL DISTRIBUTION WIDTH 15.3 % (11.6-14.6); WHITE BLOOD COUNT 13.1 x1000/uL (4.5-11.0)
[2023-06-18 07:14] LABS: DIFFERENTIAL COMMENT 1
[2023-06-18 07:22] LABS: CALCIUM 8.3 mg/dL (8.7-10.4); CARBON DIOXIDE 35 mEq/L (21-32); CHLORIDE 105 mEq/L (98-107); CREATININE 0.5 mg/dL (0.6-1.3); GLUCOSE 217 mg/dL (70-105); POTASSIUM 4.9 mEq/L (3.5-5.1); SODIUM 140 mEq/L (136-145); UREA NITROGEN BLOOD 19 mg/dL (9-23)
[2023-06-18 08:38] LABS: BG BASE EXCESS 4.3 mmol/L (-2.0-2.0); BG CARBOXYHEMOGLOBIN 0.3 % (0.5-1.5); BG FRACTION INSPIRED OXYGEN 40; BG HCO3 ACT 32.2 mmol/L (22.0-26.0); BG METHEMOGLOBIN 0.5 % (0.0-1.5); BG OXYHEMOGLOBIN 96.2 % (94.0-97.0); BG PCO2 68.9 mmHg (35.0-45.0); BG PH 7.288 (7.350-7.450); BG PO2 109.1 mmHg (75.0-100.0); BG SAMPLE SITE LEFT RADIAL; BG TOTAL HEMOGLOBIN 10.1 g/dL (12.0-18.0); BG TOTAL RESPIRATORY RATE 10 b/min; BG VENT MODE VENT - SIMV
[2023-06-18 09:58] LABS: ANISOCYTOSIS 1+; PLATELET ESTIMATE DECREASED
[2023-06-18] MEDS: NA PHOS,M-B/NA PHOS,DI-BA ENEMA 118ML PR NR (18:18)
[2023-06-18] MEDS: DIVALPROEX SODIUM 125MG SPRINKLE CAPSULE PO SCH (18:39)
[2023-06-18] MEDS: LEVETIRACETAM 1,500 MG in SODIUM CHLORIDE 0.9% 100 ML IV SCH (22:36)
[2023-06-19] VITALS (67 sets, daily range): BP systolic 116–168; BP diastolic 68–93; PULSE 65–113; RESP 0–28; TEMP 97.3–97.9; O2SAT 100
[2023-06-19 05:59] LABS: PREALBUMIN 15.2 mg/dl (10.0-40.0)
[2023-06-19 10:03] LABS: BG BASE EXCESS 6.9 mmol/L (-2.0-2.0); BG CARBOXYHEMOGLOBIN 0.3 % (0.5-1.5); BG DEOXYHEMOGLOBIN 1.8 % (0.0-5.0); BG FRACTION INSPIRED OXYGEN 40; BG HCO3 ACT 31.7 mmol/L (22.0-26.0); BG METHEMOGLOBIN 0.3 % (0.0-1.5); BG OXYGEN SATURATION 98.2 % (92.0-98.5); BG OXYHEMOGLOBIN 97.6 % (94.0-97.0); BG PCO2 46.5 mmHg (35.0-45.0); BG PH 7.452 (7.350-7.450); BG PO2 129.3 mmHg (75.0-100.0); BG SAMPLE SITE ALINE; BG TOTAL HEMOGLOBIN 10.2 g/dL (12.0-18.0); BG VENT MODE PRVC
[2023-06-19] MEDS ORDERED: LORAZEPAM 2MG/ML INJ IV PRN (15:15)
[2023-06-19] MEDS: NA PHOS,M-B/NA PHOS,DI-BA ENEMA 118ML PR NR (19:54)
[2023-06-20] VITALS: BP 148/78; PULSE 64; RESP 8; TEMP 97.3
[2023-06-20 00:15] VITALS: PULSE 72; RESP 12
== END 2023-06-20 00:45 | DRG 207 ==
LOC: ER 13:40 → 5EST 18:00 → EDBEDREQSVC 18:04 → EDBEDREQ 18:04 → MICUNO 06-13 17:28 → CVICU 06-15 14:40
PROVIDERS: ADMIT Internal Medicine; ATTEND Internal Medicine
PROC: 5A09357 Assistance with Respiratory Ventilation, Less than 24 Consecutive Hours, Continuous Positive Airway Pressure (ICD-10-PCS; 2023-06-03)
PROC: 5A09457 Assistance with Respiratory Ventilation, 24-96 Consecutive Hours, Continuous Positive Airway Pressure (ICD-10-PCS; 2023-06-04)
PROC: 5A0945A Assistance with Respiratory Ventilation, 24-96 Consecutive Hours, High Flow/Velocity Cannula (ICD-10-PCS; 2023-06-07)
PROC: 5A09357 Assistance with Respiratory Ventilation, Less than 24 Consecutive Hours, Continuous Positive Airway Pressure (ICD-10-PCS; principal; 2023-06-08)
PROC: 5A1955Z Respiratory Ventilation, Greater than 96 Consecutive Hours (ICD-10-PCS; 2023-06-13)
PROC: 0BH17EZ Insertion of Endotracheal Airway into Trachea, Via Natural or Artificial Opening (ICD-10-PCS; 2023-06-13)
PROC: 5A12012 Performance of Cardiac Output, Single, Manual (ICD-10-PCS; 2023-06-13)
PROC: 03HY33Z Insertion of Infusion Device into Upper Artery, Percutaneous Approach (ICD-10-PCS; 2023-06-14)
PROC: 4A00X4Z Measurement of Central Nervous Electrical Activity, External Approach (ICD-10-PCS; 2023-06-15)
PROC: 02HV33Z Insertion of Infusion Device into Superior Vena Cava, Percutaneous Approach (ICD-10-PCS; 2023-06-16)
PROC: B548ZZA Ultrasonography of Superior Vena Cava, Guidance (ICD-10-PCS; 2023-06-16)
DX: J44.1 Chronic obstructive pulmonary disease with (acute) exacerbation (principal); J96.01 Acute respiratory failure with hypoxia; G92.8 Other toxic encephalopathy; I46.9 Cardiac arrest, cause unspecified; J96.02 Acute respiratory failure with hypercapnia; E87.4 Mixed disorder of acid-base balance; R57.9 Shock, unspecified; Z68.1 Body mass index [BMI] 19.9 or less, adult; G93.1 Anoxic brain damage, not elsewhere classified; I42.9 Cardiomyopathy, unspecified; E46 Unspecified protein-calorie malnutrition; D69.6 Thrombocytopenia, unspecified; R73.9 Hyperglycemia, unspecified; D64.9 Anemia, unspecified; F20.9 Schizophrenia, unspecified; E87.5 Hyperkalemia; J45.909 Unspecified asthma, uncomplicated; F17.210 Nicotine dependence, cigarettes, uncomplicated; R00.0 Tachycardia, unspecified; R74.01 Elevation of levels of liver transaminase levels; R56.9 Unspecified convulsions; M85.80 Other specified disorders of bone density and structure, unspecified site; Z91.148 Patient's other noncompliance with medication regimen for other reason; Z91.199 Patient's noncompliance with other medical treatment and regimen due to unspecified reason
CPT/HCPCS: 31500; 36415; 36573; 36600; 71045; 71275; 74018; 78580; 80048; 80053; 82040; 82330; 82375; 82542; 82803; 82805; 82962; 83036; 83735; 83880; 84100; 84134; 84145; 84478; 84484; 85025; 85379; 87070; 87077; 87186; 87804; 93005; 93306; 93970; 94002; 94003; 94640; 94660; 97162; 99291; C1725; C1893; J1160; J1630; J1650; J1815; J1953; J1956; J2060; J2370; J2543; J2704; J2920; J2930; J3475; J3480; J3490; J7030; J7050; J7060; J7626; Q9967; A5200